=== PATIENT | female | born 1960 | race Caucasian/White ===

== ENCOUNTER 2022-04-23 15:59 | Emergency (ER) | payer OTHER ==
[2022-04-23 16:48] LABS: #Lymphocytes 1.3 thou/uL (1.20-3.40); #Monocytes 1.2 thou/uL (0.11-0.59); #Neutrophils 16.5 thou/uL (1.40-6.50); %Basophils 0.2 % (0.0-1.0); %Lymphocytes 6.8 % (21.0-51.0); %Monocytes 6.3 % (0.0-10.0); %Neutrophils 86.7 % (42.0-75.0); Hemoglobin 14.5 g/dL (12.0-16.0); Mean Corpuscular HGB CONC 34.1 g/dL (32.0-36.0); Mean Corpuscular Hemoglobin 30.4 pg (27.0-31.0); Mean Corpuscular Volume 89.4 fL (78.0-98.0); Mean Platelet Volume 7.6 fL (7.4-10.4); Platelet Count 163 thou/uL (130-400); RBC Distribution Width 13.5 % (11.5-14.5); Red Blood Cell (RBC) Count 4.77 mill/uL (4.20-5.40); White Blood Cell (WBC) Count 19.1 thou/uL (4.8-10.8)
[2022-04-23] MEDS ORDERED: Morphine 4 MG/ML VIAL ONE (16:52)
[2022-04-23] MEDS ORDERED: Ondansetron PF 4 MG/2 ML Vial ONE (16:52)
[2022-04-23] MEDS ORDERED: Aspirin Chewable 81 MG TAB ONE (16:52)
[2022-04-23 17:02] LABS: ALT (SGPT) 37 U/L (8-55); AST (SGOT) 33 U/L (5-34); Alkaline Phosphatase 62 U/L (40-110); Anion Gap 14 mmol/L (10-20); BUN (Urea Nitrogen) 11 mg/dL (9.8-20.1); Bilirubin, Total 1.5 mg/dL (0.2-1.2); Calc. Creatinine Clearance 0 mL/min (70-130); Calcium 9.1 mg/dL (7.8-10.44); Carbon Dioxide 26 mmol/L (23-31); Chloride 101 mmol/L (98-107); Estimated GFR 88; Globulin 2.6 g/dL (2.4-3.5); Glucose 97 mg/dL (80-115); Lipase 13 U/L (8-78); Protein, Total 6.6 g/dL (5.8-8.1); Sodium 138 mmol/L (136-145)
[2022-04-23 17:20] LABS: CKMB 0.7 ng/mL (0-6.6)
[2022-04-23] MEDS ORDERED: Potassium Chloride 20 MEQ TAB ONE (18:30)
[2022-04-23 20:38] LABS: Troponin I 0.069 ng/mL (< 0.028)
[2022-04-23] MEDS ORDERED: Enoxaparin Sodium 100 MG/ML SYRINGE ONE (21:44)
== END 2022-04-23 23:06 | disposition short-term general hospital (02) ==
LOC: BURERS 15:59
DX: R07.9 Chest pain, unspecified (principal); Z20.822 Contact with and (suspected) exposure to COVID-19
CPT/HCPCS: 36415; 71045; 80053; 82553; 83605; 83690; 84484; 85025; 85379; 87804; 93005; 96372; 96374; 96375; J1650; J2270; J2405; U0003; U0005